=== PATIENT | male | born 1960 | race American Indian/Alaskan Native ===

== ENCOUNTER 2017-08-07 06:06 | Day surgery (SDC) | payer MEDICAID ==
[2017-07-24 10:21] VITALS: BMI 23.4
[2017-08-07] MEDS ORDERED: Propofol 10 mg/ml Inj (20 ML) ONE ×2 (07:50→08:50)
[2017-08-07] MEDS ORDERED: Lidocaine Hydrochloride 5 ML INJ ONE (07:51)
[2017-08-07 09:16] VITALS: TEMP 98.4
[2017-08-07 09:34] VITALS: O2SAT 99
[2017-08-07 09:38] VITALS: RESP 14
[2017-08-07 13:23] VITALS: PULSE 61
[2017-08-07 13:26] VITALS: BP 128/73
== END 2017-08-07 13:23 | disposition home or self-care (01) ==
LOC: C.ENDO 06:06
PROVIDERS: ATTEND Internal Medicine Gastroenterology
DX: Z12.11 Encounter for screening for malignant neoplasm of colon (principal); D12.2 Benign neoplasm of ascending colon; D12.4 Benign neoplasm of descending colon; D12.3 Benign neoplasm of transverse colon
CPT/HCPCS: 45380; 45386; 88305; J2704